=== PATIENT | female | born 1960 | race Hispanic/Latino ===

== ENCOUNTER 2023-05-14 09:35 | Emergency (ER) | payer OTHER ==
[~2023-05-14] VITALS: Ht 160 cm; Wt 53.1 kg
[2023-05-14] MEDS ORDERED: KETOROLAC 30MG VIAL (30MG/ML) IM ONE (10:30)
[2023-05-14] MEDS ORDERED: CYCLOBENZAPRINE HCL 10 MG TABLET PO ONE (10:30)
[2023-05-14 12:11] LABS: APPEARANCE,URINE CLEAR (CLEAR); BILIRUBIN,URINE NEGATIVE (NEGATIVE); COLOR,URINE LIGHT-YELLOW (YELLOW); GLUCOSE, URINE (UA) NEGATIVE (NEGATIVE); KETONES,URINE NEGATIVE (NEGATIVE); LEUKOCYTE ESTERASE ,URINE NEGATIVE Leu/uL (NEGATIVE); NITRATE,URINE NEGATIVE (NEGATIVE); OCCULT BLOOD,URINE NEGATIVE (NEGATIVE); PROTEIN,URINE NEGATIVE (NEGATIVE); UROBILINOGEN,URINE 0.2 mg/dL (0.2-1.0)
[2023-05-14 12:18] VITALS: BP 143/67
[2023-05-14] MEDS ORDERED: IBUP-2070 PO (12:35)
[2023-05-14] MEDS ORDERED: CYCL10TA16 PO (12:35)
== END 2023-05-14 12:46 | disposition home or self-care (01) ==
LOC: EDH 09:35
DX: S39.012A Strain of muscle, fascia and tendon of lower back, initial encounter (principal); Z85.3 Personal history of malignant neoplasm of breast; X58.XXXA Exposure to other specified factors, initial encounter; Y93.89 Activity, other specified; Y92.89 Other specified places as the place of occurrence of the external cause; Y99.8 Other external cause status
CPT/HCPCS: 99284; 81003; 72200; 72100; 96372; J1885

== ENCOUNTER 2023-08-20 08:45 | Day surgery (SDC) | payer OTHER ==
[2023-08-19 10:56] LABS: BASOPHILS # (AUTO) 0.02 K/uL (0.00-0.20); BASOPHILS % (AUTO) 0.4 % (0.0-5.0); EOSINOPHILS # (AUTO) 0.07 K/uL (0.00-0.70); EOSINOPHILS % (AUTO) 1.3 % (0.0-8.0); HEMATOCRIT 36.7 % (36-48); IMMATURE GRANULOCYTE ABSOLUTE 0.01 K/uL (0-1); LYMPHOCYTES # (AUTO) 1.9 K/uL (1.0-4.8); LYMPHOCYTES % (AUTO) 33.4 % (21.0-51.0); MEAN CORPUSCULAR HEMOGLOBIN 29.2 pg (27.0-33.0); MEAN CORPUSCULAR HGB CONC 32.2 g/dL (32.0-36.0); MEAN CORPUSCULAR VOLUME 90.8 fL (79-99); MONOCYTES # (AUTO) 0.5 K/uL (0.1-1.0); MONOCYTES % (AUTO) 8.5 % (3.0-13.0); NEUTROPHILS # (AUTO) 3.1 K/uL (1.8-7.7); NEUTROPHILS % (AUTO) 56.2 % (40.0-77.0); PLATELET COUNT (AUTO) 267 K/uL (130-400); RED BLOOD CELL COUNT(AUTO) 4.04 MIL/uL (4.00-5.50); WHITE BLOOD COUNT (AUTO) 5.5 K/uL (4.8-10.8)
[2023-08-19 11:04] LABS: CREATININE 0.8 mg/dL (0.5-1.5)
[2023-08-19 11:07] LABS: INR < 0.93 (0.85-1.15); PROTHROMBIN TIME 10.3 SEC (9.6-11.6)
[2023-08-19 11:08] LABS: PARTIAL THROMBOPLASTIN TIME 28.4 SEC (26.3-35.5)
[2023-08-19 11:20] VITALS: BP 114/64; PULSE 69; RESP 18
[~2023-08-20] VITALS: Ht 160 cm; Wt 52.4 kg
[2023-08-20] VITALS (18 sets, daily range): BP systolic 100–146; BP diastolic 51–81; PULSE 60–78; RESP 12–18
[~2023-08-20 08:45] MED LIST: BISA-189 PO; CALCIUM/VITD PO; COLACE PO; CYCL10TA16 PO; HYDR-4060 PO; IBUP-2070 PO; LORA-192 PO; ONDA4TAB10 PO; TRAZ-187 PO; VITAMIN D PO; ZOLEDRONIC ACID PO
[2023-08-20] MEDS ORDERED: LACTATED RINGERS 1000ML 1,000 ML IV ONE (09:44)
[2023-08-20] MEDS ORDERED: SCOPOLAMINE HYDROBROMIDE 1 EACH ADH..PATCH TD ONE (10:14)
[2023-08-20] MEDS ORDERED: LIDOCAINE PF 100MG/5ML (2%) SYRINGE 5ML ONE ×2 (10:15→10:50)
[2023-08-20] MEDS ORDERED: FAMOTIDINE 20MG VIAL IV ONE (10:15)
[2023-08-20] MEDS: CEFAZOLIN SODIUM 2 GM VIAL ONE ×2 (10:38→11:55)
[2023-08-20] MEDS ORDERED: PROPOFOL 10 MG/ML 20ML VIAL IV ONE (10:50)
[2023-08-20] MEDS ORDERED: ONDANSETRON 4MG INJ ONE ×2 (10:50→10:51)
[2023-08-20] MEDS ORDERED: NEOSTIGMINE 5MG/5ML SYR IV ONE (10:50)
[2023-08-20] MEDS ORDERED: GLYCOPYRROLATE 1 MG/5 ML SYRINGE ONE (10:50)
[2023-08-20] MEDS ORDERED: SUCCINYLCHOLINE 200MG/10ML SYR ONE (10:50)
[2023-08-20] MEDS ORDERED: DEXAMETHASONE SOD PHOSPHATE 10MG/ML 1ML VIAL ONE (10:50)
[2023-08-20] MEDS ORDERED: MIDAZOLAM HCL 1 MG/ML 2ML VIAL ONE (10:51)
[2023-08-20] MEDS ORDERED: ROCURONIUM 10MG/1ML SYR 10 MG/ML ML ONE (10:51)
[2023-08-20] MEDS ORDERED: FENTANYL CITRATE PF 50 MCG/1 ML 2ML VIAL ONE (10:51)
[2023-08-20] MEDS ORDERED: BUPIVACAINE/PF 0.25% 30ML VIAL IJ ONE (12:12)
[2023-08-20] MEDS ORDERED: BACITRACIN 28.4 GM OINT TP ONE (12:22)
[2023-08-20] MEDS ORDERED: ACET-2079 PO (12:33)
[2023-08-20] MEDS ORDERED: METH-662 PO (12:35)
[2023-08-20] MEDS ORDERED: GABA-529 PO (12:35)
[2023-08-20] MEDS ORDERED: DOCU-116 PO (12:35)
[2023-08-20] MEDS ORDERED: MEPERIDINE-PF 25 MG/ML SYG ONE (13:09)
== END 2023-08-20 14:30 | disposition home or self-care (01) ==
LOC: DAH 08:45
PROVIDERS: ATTEND Surgery
DX: C50.111 Malignant neoplasm of central portion of right female breast (principal); R59.0 Localized enlarged lymph nodes; Z79.01 Long term (current) use of anticoagulants; Z79.899 Other long term (current) drug therapy
CPT/HCPCS: 80048; 85025; 85610; 85730; 36415; 38525; 88361; 88307; 88342; 88341; A6260; A4606; J7120; J3490 ×2; J3010; J0330; J1100; J2710; J0665; J2001 ×2; J2250; J2704; J2405 ×2; J2175; J0690; A4649; A4215; A4223; A4222; A4221; A4663; A4600